=== PATIENT | female | born 1985 | race Two or more races ===

== ENCOUNTER → 2018-04-30 | Outpatient (CLI) | payer OTHER | END | disposition home or self-care (01) | LOC: NUCLEAR 06:00 | DX: E21.3 Hyperparathyroidism, unspecified (principal) | CPT/HCPCS: 78070; A9500 ==

== ENCOUNTER 2018-05-12 09:02 | Outpatient (CLI) | payer OTHER | END 2018-05-12 09:34 | disposition home or self-care (01) | LOC: RAD 501 09:02 | DX: Z01.818 Encounter for other preprocedural examination (principal) ==

== ENCOUNTER 2018-10-09 11:43 | Outpatient (CLI) | payer OTHER | END 2018-10-09 12:03 | disposition home or self-care (01) | LOC: RAD 501 11:43 | DX: M25.571 Pain in right ankle and joints of right foot (principal) ==

== ENCOUNTER 2023-05-27 10:44 | Outpatient (CLI) | payer OTHER | END 2023-05-27 10:52 | disposition home or self-care (01) | LOC: RAD 10:44 | PROVIDERS: ATTEND Physical Medicine & Rehabilitation | DX: M25.572 Pain in left ankle and joints of left foot (principal) ==

== ENCOUNTER 2024-08-27 10:50 | Outpatient (CLI) | payer OTHER | END 2024-08-27 10:58 | disposition home or self-care (01) | LOC: SONOGRAMA 10:50 | PROVIDERS: ATTEND Physical Medicine & Rehabilitation | DX: M75.22 Bicipital tendinitis, left shoulder (principal) ==

== ENCOUNTER 2025-07-11 14:51 | Outpatient (CLI) | payer OTHER | END 2025-07-11 15:00 | disposition home or self-care (01) | LOC: RAD 14:51 | PROVIDERS: ATTEND Family Medicine | DX: M54.59 Other low back pain (principal); M79.641 Pain in right hand; M79.642 Pain in left hand; M79.671 Pain in right foot; M79.672 Pain in left foot ==